=== PATIENT | female | born 1950 | race Caucasian/White ===

== ENCOUNTER → 2020-05-18 09:40 | Outpatient (BNVA) | payer OTHER, SELFPAY | PROVIDERS: PCP Internal Medicine; Visit Provider Hospitalist | DX: Z76.89 Persons encountering health services in other specified circumstances (principal) ==

== ENCOUNTER → 2021-05-20 10:14 | Outpatient (BNVA) | payer OTHER, SELFPAY | PROVIDERS: PCP Internal Medicine; Visit Provider Hospitalist ==

== ENCOUNTER 2021-07-29 13:38 | Outpatient (REF) | payer OTHER, SELFPAY ==
--- NOTE | 2021-07-29 17:23 | PFT_ITS ---
Forced vital capacity FEV1, ROS46-30, and MVV are all somewhat super normal. Postbronchodilator therapy, there is no significant change. Total lung capacity and residual volume are normal. Diffusion capacity normal. CONCLUSION: Normal pulmonary function test. No evidence of obstructive or restrictive pulmonary disorder. Deanne Nguyen MD MSB/MODL / [id number]
== END 2021-07-29 13:39 | disposition home or self-care (01) ==
LOC: HO.RESP 13:38
PROVIDERS: PCP Internal Medicine; Visit Provider Hospitalist
DX: R06.00 Dyspnea, unspecified (principal)
CPT/HCPCS: 94060; 94727; 94729

== ENCOUNTER → 2021-10-31 12:56 | Outpatient (BNVA) | payer OTHER, SELFPAY | PROVIDERS: PCP Internal Medicine; Visit Provider Hospitalist | DX: Z13.89 Encounter for screening for other disorder (principal) ==

== ENCOUNTER 2022-04-12 09:25 | Outpatient (REF) | payer MEDICARE, SELFPAY ==
--- NOTE | ~2022-04-12 | CT_ITS ---
EXAMINATION: CT CHEST WITHOUT CONTRAST CLINICAL INFORMATION: Pleural plaque without asbestos COMPARISON: Previous chest x-ray July 2009 TECHNIQUE: Multidetector volumetric CT imaging of the chest was done. Axial MIP volume rendering provided. Sagittal and coronal reformatted images were obtained. This CT examination was performed using dose optimization techniques as appropriate, variously including the following: *Automated exposure control *Adjustment of mA and/or kV according to patient size (this includes techniques or standardized protocols for targeted exams where dose is matched to indication/reason for exam; i.e. extremities or head) *Use of iterative reconstruction technique DLP: 181 mGy-cm FINDINGS: LUNGS: There is a 3 mm calcified peripheral left upper lobe nodule axial image 166 series 7. There are increased peripheral reticular markings seen in the anterior left upper lobe. This may be related to chest wall radiation. The lungs are otherwise clear. There is a small subcentimeter cyst in the right middle lobe axial image 306 series 7. MEDIASTINUM: The mediastinum is normal. CORONARY ARTERY CALCIFICATION: Mild coronary artery calcification. Normal heart size. No pericardial effusion. PLEURA: There is no pleural effusion. No pleural mass or thickening. AXILLA: There are no enlarged axillary lymph nodes. There is are surgical clips seen in the deep left breast adjacent to the chest wall. There is a a postoperative fluid collection adjacent to the surgical clips measuring 1.7 x 4 x 2 cm in dimension for example axial image 27 series 3 and sagittal image 12. UPPER ABDOMEN: There is diverticulosis of the colon. OSSEOUS STRUCTURES: There are degenerative changes of the spine. There are bilateral shoulder replacements. CT/CT chest wo IV con IMPRESSION: No pleural plaque seen. Small calcified left upper lobe pulmonary nodule. Increased peripheral or subpleural reticular markings in the anterior left upper lobe likely related to chest wall radiation. Postsurgical changes to the left breast. Fleischner guidelines were followed.
== END 2022-04-12 09:26 | disposition home or self-care (01) ==
LOC: HO.CT 09:25
PROVIDERS: PCP Internal Medicine; Visit Provider Hospitalist
DX: J18.9 Pneumonia, unspecified organism (principal); R59.1 Generalized enlarged lymph nodes; J92.9 Pleural plaque without asbestos
CPT/HCPCS: 71250

== ENCOUNTER → 2022-05-09 09:20 | Outpatient (BNVA) | payer MEDICARE, SELFPAY | PROVIDERS: PCP Internal Medicine; Visit Provider Hospitalist | DX: G47.00 Insomnia, unspecified (principal); R06.00 Dyspnea, unspecified; J92.9 Pleural plaque without asbestos; R91.1 Solitary pulmonary nodule; J98.11 Atelectasis | CPT/HCPCS: 99212 ==

== ENCOUNTER → 2022-11-14 10:14 | Outpatient (BNVA) | payer MEDICARE, SELFPAY | PROVIDERS: PCP Internal Medicine; Visit Provider Hospitalist | DX: G47.00 Insomnia, unspecified (principal); R06.00 Dyspnea, unspecified; J92.9 Pleural plaque without asbestos; R91.1 Solitary pulmonary nodule; J98.11 Atelectasis; M48.00 Spinal stenosis, site unspecified | CPT/HCPCS: 99212 ==

== ENCOUNTER 2023-05-18 09:28 | Outpatient (REF) | payer MEDICARE, SELFPAY ==
--- NOTE | ~2023-05-18 | CT_ITS ---
EXAMINATION: CT CHEST WITHOUT CONTRAST CLINICAL INFORMATION: 73-year-old female with solitary pulmonary nodule COMPARISON: 04/12/2022 TECHNIQUE: Multidetector volumetric CT imaging of the chest was done. Axial MIP volume rendering provided. Sagittal and coronal reformatted images were obtained. This CT examination was performed using dose optimization techniques as appropriate, variously including the following: *Automated exposure control *Adjustment of mA and/or kV according to patient size (this includes techniques or standardized protocols for targeted exams where dose is matched to indication/reason for exam; i.e. extremities or head) *Use of iterative reconstruction technique DLP: 157 mGy-cm FINDINGS: MANAGER UNDERWRITING: Unremarkable LUNGS: There is stable calcified left upper lobe granuloma seen on image 129 series 5, measured 0.3 cm. There is mild subpleural reticulation seen in the left upper chest most likely related to postradiation changes. There are no new lung nodules. MEDIASTINUM: The mediastinum is normal. CORONARY ARTERY CALCIFICATION: Mild coronary artery calcifications present. PLEURA: There is no pleural effusion. No pleural mass or thickening. AXILLA: No lymphadenopathy. There are stable postsurgical changes in the deep portion of left breast with postsurgical seroma. UPPER ABDOMEN: Unremarkable. OSSEOUS STRUCTURES: No lytic or blastic lesions identified. CT/CT chest wo IV con IMPRESSION: No interval change. Stable left upper lobe calcified granuloma and postradiation changes in the left upper chest. Stable postsurgical changes in the left breast. Fleischner guidelines were followed.
== END 2023-05-18 09:29 | disposition home or self-care (01) ==
LOC: HO.CT 09:28
PROVIDERS: PCP Internal Medicine; Visit Provider Hospitalist
DX: R91.1 Solitary pulmonary nodule (principal)
CPT/HCPCS: 71250

== ENCOUNTER 2023-05-25 14:24 | Outpatient (AMB) | payer MEDICARE, SELFPAY ==
--- NOTE | 2023-05-25 14:31 | MHC.OFFVIS ---
Intake Vital Signs 05/25/23 14:35 Height 5 ft 4 in Weight 178 lb BMI 30.6 Pulse 87 Pulse Source Pulse Oximeter Pulse Oximetry (%) 96 Oxygen Delivery Method Room Air Intake Visit Reasons: Asthma/CT Chest Follow Up Marketing Operations Coordinator Required: No Allergies No Known Allergies Allergy (Verified 05/25/23 14:36) HPI HPI Comments History of Present Illness Details The patient is a 73-year-old woman with a known history of obstructive sleep apnea current being treated with oral appliance. The patient has been sleeping well with this use Ambien. Initially she tried weaning off the Ambien resulting in significant issues with insomnia. She was also tried on Belsomra resulting in worsening fragmented sleep. So therefore, she went back on Ambien. She seems to be tolerating it well. She denies any retrograde amnesia. I did explain to her the importance of taking breaks from the medication to take a medication holiday at times. In the meantime she continues to use her oral appliance with very good effect. Her Greenwood score is down to 5/24. During the last visit, the patient is here for sick visit. She was in her usual state health until right after had seen a she started developing worsening respiratory symptoms. She is having more coughing and was noted to be audibly wheezing. She was seen by her nurse practitioner and was given a course of prednisone and also gave her short-acting beta agonist for the wheezing to treat what appeared to be a viral syndrome. Her symptoms did improve therefore the patient went back to be evaluated. This time she was given doxycycline and other brief course of prednisone. She was also given a long-acting beta agonist with inhaled cortical steroid. She was taking all his medicines and also got a nebulizer with albuterol therapy. The point she was taking a lot of medicines she felt uncomfortable. Therefore she started tapering quickly the prednisone and then since she felt better she also stop inhalers and then stopped all her other medications. Now her symptoms appeared to be coming back. She is having increasing cough nonproductive cough. All ascending she developed a temperature up to 102 with a digital thermometer that was yesterday. She hasn't had any fever since then. 05/18/2020. The patient is here for pulmonary follow-up visit. Patient has recovered well from her previous respiratory illness. She was wondering if she could have had COVID-19 infection then. However, nobody else in the family became sick at the time. She would like to hold off on checking her antibiotics at this time. She is not using any inhalers in her respiratory status is back to baseline. It is likely she had a component of reactive airway disease from viral syndrome. Her sleep appears to be stable on the current sleep aid. she does sleep about 4 hours a night with the Ambien. She wishes she could sleep a little longer. 05/20/2021 the patient is here for a pulmonary follow-up visit. Patient has had a very eventful year. She did have to have shoulder replacement surgery x2. She still recovering from her left shoulder replacement. Did not heels quickly or as well. In addition to that the patient started having fevers of unknown origin. She was admitted briefly to [facility] where she was evaluated on to have a tick-borne infection and treated appropriately. 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 She does complaint of some dyspnea on exertion now that she has recovered. She still gets short of breath going up couple flights of stairs. She has been having this issue even prior to getting sick with the tick-borne illness. I did personally review the CT scan in a did try to reassure her that it appears that the changes to some degree of mainly from the radiation that she received for her breast cancer many years ago resulting in some thickening of her pleura. However, in view of the new findings of the pleural plaques and some lymphadenopathy is not on reasonable for her to undergo a repeat CT scan in a year's time. If the patient develops any worsening symptoms prior to that we can always consider following up with sooner. I am going to have the patient undergo pulmonary function studies sometime in early next year and we can review them afterwards in order to assess her lung capacity at the time. She is planning a trip to go skiing in August and I would like to address the question prior to her trip. 10/31/2021 the patient is here for a pulmonary follow-up visit. Overall she is doing well. She was able to On her as she tripped in August. Respiratory status stable at that altitude. She did take it easy specially because her relatively recent shoulder surgery. She still has some shoulder discomfort specially the over left 1 which she does have some radiation discomfort to the chest area specially when lifting up the arm. She is wondering if that could be due to some radiation injury that may have been the result of her radiation during her breast cancer therapy. In addition to that she is concerned about the findings on the CT scan demostrating the pleural plaques along with the pneumonitis and the lymphadenopathy. her last CT scan was on April of 2021. Will plan to repeat the CT scan in April 2022 to make sure that those changes have not progressed. If there are any worsening evidence of pneumonitis then further diagnostic interventions will be warranted. In the meantime the patient has had a difficult time sleeping. She still using Ambien for sleep with partial improvement of her symptoms. She does have a smart watch that measures her oxygen while she is sleeping and she has noted that is dropped down to 88%. I did reassure her that dropped down to 88% is not dangers unless is more than 5 minutes. May be due to some degree of sleep apnea. The patient has a hard time sleeping on her side because of her shoulder surgery. I did recommend that she sleep elevated with a wedge or positional bed to minimize obstructive apnea. If she continues to be symptomatic then we will discuss undergoing a repeat sleep study some point to further address that. 05/09/2022 the patient is here for a pulmonary follow-up visit. She has been concerned about her CT scan findings. She has call before we did send her a copy of the report and we will talk to her today about it. She denies any worsening shortness of breath or cough. She is able to do all her activities of daily living. She is not using any inhalers. She does use nasal therapy for nasal congestion. Lately she has been having some allergy symptoms and some postnasal drip. We talked about rinsing with the Neti bottle for benefit without potential adverse effects. She did try antihistamines but she did complaint of dry eyes. We did review her CT scan of the chest demonstrating minimal atelectasis the bases along with some reticular changes likely some scarring that was a minimal amount left more than right lung in a man been related to an old infection. No significant lymphadenopathy noted. This has improved. She does have some radiation changes at the pleura and the lung primarily from the left lung the receive radiation for breast cancer that area appears to be stable. She does have a pulmonary nodule in the right lower lobe that appears to be subsolid in nature measuring 3-4 mm in size and will require additional follow-up. She has a calcified nodule in the left upper lobe as well. In the room based on the findings explained to the patient that she will need another CT scan in a year's time. 11/14/2022 the the patient is here for pulmonary follow-up visit. The patient is now having issues with her back. She is having significant spinal stenosis severe pain. At least from a respiratory status patient is doing well. Her sleep is still affected by her other elements but she is doing better with the Ambien. She is tolerating it well. A prescription was sent to the pharmacy. We did talk about her last CT scan of the chest demonstrating the pulmonary nodule which is small. In addition to that she has some interstitial changes likely from radiation therapy. She has a scheduled CT scan for March 2023. She opted to having it at [facility] breast surgeon. 05/25/2023 the patient is here for a pulmonary follow-up visit the patient overall has been doing better. She still has issues with insomnia. Dyspnea appears to be better at this time still has some dyspnea on exertion mild in severity. She recent CT scan of the chest which I personally reviewed with her. Also compared to her previous CT scan. She does have stable pulmonary nodules. a ground-glass nodular density 1 of the nodules appears to be subsolid in nature in the right hemithorax. Therefore, this ground-glass nodular density will require a longer evaluation. Therefore will go ahead and repeat the CT scan in a year's time. Does not nodules that are solid on stable and reassuring. [facility] Medical History (Updated 05/25/23 @ 14:40 by David Brown MD) Spinal stenosis Atelectasis Pulmonary nodule Lymphadenopathy Pneumonitis Pleural plaque Dyspnea Insomnia Social History (Updated 10/31/21 @ 13:07 by EFRAIN Brannon) Patient Tobacco Use Status: Never used Tobacco Review of Systems Const Reports daytime sleepiness, Reports difficulty sleeping and Denies night sweats ENT Denies change in voice, Denies lip swelling, Denies mouth pain, Reports nasal congestion, Reports nasal discharge and Denies tongue swelling Card Denies chest pain Resp Reports cough GI Denies abdominal pain Musc Reports as per HPI, Reports back pain, Reports myalgias, Reports arthralgias, Reports limited range of motion and Reports stiffness Neuro Denies Neuro-related abnormal movements Psych Denies no additional complaints Kunal/Lymph Denies easy bleeding and Denies lymphadenopathy Aller/Immun Denies lip swelling and Denies tongue swelling Physical Exam Vital Signs: Last Vital Signs Pulse 87 05/25/23 14:35 Pulse Ox 96 05/25/23 14:35 Oxygen Delivery Method Room Air 05/25/23 14:35 BMI result Body Mass Index 30.6 Const General: alert HEENT General nose exam: Abnormal external nose present and Nasal discharge present Eyes Pupils: Equal, round and reactive pupils present Neck Neck: Yes normal visual inspection, Yes full ROM and Yes no lymphadenopathy Chest Chest palpation & inspection: normal inspection of the chest Resp Auscultation: diminished lung sounds Cardio Rate: regular rate Rhythm: regular rhythm Heart sounds: S1 normal heart sound present and S2 normal heart sound present GI Palpation (GI): Soft to palpation and nontender Auscultation: normal bowel sounds General: Yes no CVA tenderness Back/Spine/Pelvis Back: no CVA tenderness Skin General skin exam: rashes and/or lesions noted Neuro Cranial nerves: Yes Equal, round and reactive pupils present Assessment & Plan Assessment & Plan (1) Insomnia: Code(s): G47.00 - Insomnia, unspecified Qualifiers: Insomnia type: primary Qualified Code(s): F51.01 - Primary insomnia Plan: continue Ambien 10mg daily Add Trozadone 50mg qhs (2) Dyspnea: Code(s): R06.00 - Dyspnea, unspecified Qualifiers: Dyspnea type: dyspnea on exertion Qualified Code(s): R06.09 - Other forms of dyspnea (3) Pleural plaque: Comment: Primarily related to area of radiation changes of the left more so we lung/pleura from her history breast cancer Code(s): J92.9 - Pleural plaque without asbestos (4) Pulmonary nodule: Comment: Right lower lobe subsolid nodule 3 - 4 mm in size. Also calcified nodule in the left upper lobe Code(s): R91.1 - Solitary pulmonary nodule (5) Atelectasis: Comment: dependent on supine position with minimal reticular changes likely from previous infection Code(s): J98.11 - Atelectasis Plan Continue sleep aid therapy positional sleep management for obstructive apneas. Will need a repeat CT scan of the chest April 2024 Follow-up 1 year Orders: Orders CT chest wo IV con 364 Days R91.1 - Solitary pulmonary nodule Coding Level of Care Code Est Pt Level 4 (33796) Diagnoses Primary insomnia F51.01 Insomnia type: primary Dyspnea on exertion R06.09 Dyspnea type: dyspnea on exertion Pleural plaque J92.9 Pulmonary nodule R91.1 Atelectasis J98.11 Time Spent (min) 17
[2023-05-25 14:35] VITALS: PULSE 87; O2SAT 96; BMI 30.6
== END 2023-05-25 14:53 | disposition home or self-care (01) ==
PROVIDERS: PCP Internal Medicine; Visit Provider Hospitalist
DX: F51.01 Primary insomnia (principal); R06.09 Other forms of dyspnea; J92.9 Pleural plaque without asbestos; R91.1 Solitary pulmonary nodule; J98.11 Atelectasis
CPT/HCPCS: 99214

== ENCOUNTER → 2023-05-25 14:24 | Outpatient (BNVA) | payer MEDICARE, SELFPAY | PROVIDERS: PCP Internal Medicine; Visit Provider Hospitalist | DX: R06.09 Other forms of dyspnea (principal); R91.1 Solitary pulmonary nodule; J92.9 Pleural plaque without asbestos; J98.11 Atelectasis; F51.01 Primary insomnia | CPT/HCPCS: 99212 ==

== ENCOUNTER 2024-10-07 10:33 | Outpatient (AMB) | payer MEDICARE, SELFPAY ==
--- NOTE | 2024-10-07 10:38 | MHC.OFFVIS ---
Vital Signs 10/07/24 10:39 Height 5 ft 4 in Weight 178 lb 9.191 oz BMI 30.6 BP 160/72 H Blood Pressure Location Rt brachial Position Sitting Pulse 57 Pulse Source Pulse Oximeter Pulse Oximetry (%) 100 Oxygen Delivery Method Room Air Intake Visit Reasons: Atelectasis Allergies No Known Allergies Allergy (Verified 10/07/24 10:42) HPI Comments Details: The patient is a 74-year-old woman with a known history of obstructive sleep apnea current being treated with oral appliance. The patient has been sleeping well with this use Ambien. Initially she tried weaning off the Ambien resulting in significant issues with insomnia. She was also tried on Belsomra resulting in worsening fragmented sleep. So therefore, she went back on Ambien. She seems to be tolerating it well. She denies any retrograde amnesia. I did explain to her the importance of taking breaks from the medication to take a medication holiday at times. In the meantime she continues to use her oral appliance with very good effect. Her Himrod score is down to 5/24. During the last visit, the patient is here for sick visit. She was in her usual state health until right after had seen a she started developing worsening respiratory symptoms. She is having more coughing and was noted to be audibly wheezing. She was seen by her nurse practitioner and was given a course of prednisone and also gave her short-acting beta agonist for the wheezing to treat what appeared to be a viral syndrome. Her symptoms did improve therefore the patient went back to be evaluated. This time she was given doxycycline and other brief course of prednisone. She was also given a long-acting beta agonist with inhaled cortical steroid. She was taking all his medicines and also got a nebulizer with albuterol therapy. The point she was taking a lot of medicines she felt uncomfortable. Therefore she started tapering quickly the prednisone and then since she felt better she also stop inhalers and then stopped all her other medications. Now her symptoms appeared to be coming back. She is having increasing cough nonproductive cough. All ascending she developed a temperature up to 102 with a digital thermometer that was yesterday. She hasn't had any fever since then. 05/18/2020. The patient is here for pulmonary follow-up visit. Patient has recovered well from her previous respiratory illness. She was wondering if she could have had COVID-19 infection then. However, nobody else in the family became sick at the time. She would like to hold off on checking her antibiotics at this time. She is not using any inhalers in her respiratory status is back to baseline. It is likely she had a component of reactive airway disease from viral syndrome. Her sleep appears to be stable on the current sleep aid. she does sleep about 4 hours a night with the Ambien. She wishes she could sleep a little longer. 05/20/2021 the patient is here for a pulmonary follow-up visit. Patient has had a very eventful year. She did have to have shoulder replacement surgery x2. She still recovering from her left shoulder replacement. Did not heels quickly or as well. In addition to that the patient started having fevers of unknown origin. She was admitted briefly to [facility] where she was evaluated on to have a tick-borne infection and treated appropriately. 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 She does complaint of some dyspnea on exertion now that she has recovered. She still gets short of breath going up couple flights of stairs. She has been having this issue even prior to getting sick with the tick-borne illness. I did personally review the CT scan in a did try to reassure her that it appears that the changes to some degree of mainly from the radiation that she received for her breast cancer many years ago resulting in some thickening of her pleura. However, in view of the new findings of the pleural plaques and some lymphadenopathy is not on reasonable for her to undergo a repeat CT scan in a year's time. If the patient develops any worsening symptoms prior to that we can always consider following up with sooner. I am going to have the patient undergo pulmonary function studies sometime in early next year and we can review them afterwards in order to assess her lung capacity at the time. She is planning a trip to go skiing in August and I would like to address the question prior to her trip. 10/31/2021 the patient is here for a pulmonary follow-up visit. Overall she is doing well. She was able to On her as she tripped in August. Respiratory status stable at that altitude. She did take it easy specially because her relatively recent shoulder surgery. She still has some shoulder discomfort specially the over left 1 which she does have some radiation discomfort to the chest area specially when lifting up the arm. She is wondering if that could be due to some radiation injury that may have been the result of her radiation during her breast cancer therapy. In addition to that she is concerned about the findings on the CT scan demostrating the pleural plaques along with the pneumonitis and the lymphadenopathy. her last CT scan was on April of 2021. Will plan to repeat the CT scan in April 2022 to make sure that those changes have not progressed. If there are any worsening evidence of pneumonitis then further diagnostic interventions will be warranted. In the meantime the patient has had a difficult time sleeping. She still using Ambien for sleep with partial improvement of her symptoms. She does have a smart watch that measures her oxygen while she is sleeping and she has noted that is dropped down to 88%. I did reassure her that dropped down to 88% is not dangers unless is more than 5 minutes. May be due to some degree of sleep apnea. The patient has a hard time sleeping on her side because of her shoulder surgery. I did recommend that she sleep elevated with a wedge or positional bed to minimize obstructive apnea. If she continues to be symptomatic then we will discuss undergoing a repeat sleep study some point to further address that. 05/09/2022 the patient is here for a pulmonary follow-up visit. She has been concerned about her CT scan findings. She has call before we did send her a copy of the report and we will talk to her today about it. She denies any worsening shortness of breath or cough. She is able to do all her activities of daily living. She is not using any inhalers. She does use nasal therapy for nasal congestion. Lately she has been having some allergy symptoms and some postnasal drip. We talked about rinsing with the Neti bottle for benefit without potential adverse effects. She did try antihistamines but she did complaint of dry eyes. We did review her CT scan of the chest demonstrating minimal atelectasis the bases along with some reticular changes likely some scarring that was a minimal amount left more than right lung in a man been related to an old infection. No significant lymphadenopathy noted. This has improved. She does have some radiation changes at the pleura and the lung primarily from the left lung the receive radiation for breast cancer that area appears to be stable. She does have a pulmonary nodule in the right lower lobe that appears to be subsolid in nature measuring 3-4 mm in size and will require additional follow-up. She has a calcified nodule in the left upper lobe as well. In the room based on the findings explained to the patient that she will need another CT scan in a year's time. 11/14/2022 the the patient is here for pulmonary follow-up visit. The patient is now having issues with her back. She is having significant spinal stenosis severe pain. At least from a respiratory status patient is doing well. Her sleep is still affected by her other elements but she is doing better with the Ambien. She is tolerating it well. A prescription was sent to the pharmacy. We did talk about her last CT scan of the chest demonstrating the pulmonary nodule which is small. In addition to that she has some interstitial changes likely from radiation therapy. She has a scheduled CT scan for March 2023. She opted to having it at [facility] breast surgeon. 05/25/2023 the patient is here for a pulmonary follow-up visit the patient overall has been doing better. She still has issues with insomnia. Dyspnea appears to be better at this time still has some dyspnea on exertion mild in severity. She recent CT scan of the chest which I personally reviewed with her. Also compared to her previous CT scan. She does have stable pulmonary nodules. a ground-glass nodular density 1 of the nodules appears to be subsolid in nature in the right hemithorax. Therefore, this ground-glass nodular density will require a longer evaluation. Therefore will go ahead and repeat the CT scan in a year's time. Does not nodules that are solid on stable and reassuring. 10/07/2024 the patient is here for pulmonary follow-up visit. Overall the patient has been doing fairly well. She has been helping her who has been dealing with some sickness and also her son who was diagnosed with renal cell carcinoma and did have to undergo a nephrectomy but he is also doing better which is reassuring. She also said issues with her scan some skin cancer that she is dealing with as well. From a respiratory status she doing well though she is using her oral appliance to sleep with in that does take care the snoring and she does wake up rested. Her Himrod score is below 8 which is reassuring. In addition to that the patient has been very active [place] and traveling without any worsening shortness of breath. She has been using the Ambien for sleep. The Ambien therapy has been affecting beneficial for her. We did talk about taking holidays from it to minimize on adverse effects. It also needs to be monitoring closely for any retrograde amnesia. She has tried trazodone before but he cause daytime drowsiness in therefore will hold off on that 1. The patient does have a history of pulmonary nodules although there calcified and also has some radiation changes. We had up requested a CT scan before but was denied. Therefore will request a chest x-ray. She rather wait till the next visit for the x-ray which is okay. [facility] Medical History (Updated 05/25/23 @ 14:40 by David Brown MD) Spinal stenosis Atelectasis Pulmonary nodule Lymphadenopathy Pneumonitis Pleural plaque Dyspnea Insomnia Social History Patient Tobacco Use Status: Never used Tobacco Review of Systems Const Reports daytime sleepiness, Reports difficulty sleeping and Denies night sweats ENT Denies change in voice, Denies lip swelling, Denies mouth pain, Reports nasal congestion, Reports nasal discharge and Denies tongue swelling Card Denies chest pain Resp Reports cough GI Denies abdominal pain Musc Reports as per HPI, Reports back pain, Reports myalgias, Reports arthralgias, Reports limited range of motion and Reports stiffness Neuro Denies Neuro-related abnormal movements Psych Denies no additional complaints Kunal/Lymph Denies easy bleeding and Denies lymphadenopathy Aller/Immun Denies lip swelling and Denies tongue swelling Physical Exam Vital Signs: Last Vital Signs Pulse 57 10/07/24 10:39 BP 160/72 H 10/07/24 10:39 Pulse Ox 100 10/07/24 10:39 Oxygen Delivery Method Room Air 10/07/24 10:39 BMI result Body Mass Index 30.6 Const General: alert HEENT General nose exam: Abnormal external nose present and Nasal discharge present Eyes Pupils: Equal, round and reactive pupils present Neck Neck: Yes normal visual inspection, Yes full ROM and Yes no lymphadenopathy Chest Chest palpation & inspection: normal inspection of the chest Resp Auscultation: clear to auscultation bilaterally Cardio Rate: regular rate Rhythm: regular rhythm Heart sounds: S1 normal heart sound present and S2 normal heart sound present GI Palpation (GI): Soft to palpation and nontender Auscultation: normal bowel sounds General: Yes no CVA tenderness Back/Spine/Pelvis Back: no CVA tenderness Skin General skin exam: rashes and/or lesions noted Neuro Cranial nerves: Yes Equal, round and reactive pupils present Assessment & Plan Assessment & Plan (1) Insomnia: Code(s): G47.00 - Insomnia, unspecified Category: Medical Qualifiers: Insomnia type: primary Qualified Code(s): F51.01 - Primary insomnia Plan: continue Ambien 10mg daily Add Trozadone 50mg qhs (2) Dyspnea: Code(s): R06.00 - Dyspnea, unspecified Category: Medical Qualifiers: Dyspnea type: dyspnea on exertion Qualified Code(s): R06.09 - Other forms of dyspnea (3) Pleural plaque: Comment: Primarily related to area of radiation changes of the left more so we lung/pleura from her history breast cancer Code(s): J92.9 - Pleural plaque without asbestos Category: Medical (4) Pulmonary nodule: Comment: Right lower lobe subsolid nodule 3 - 4 mm in size. Also calcified nodule in the left upper lobe Code(s): R91.1 - Solitary pulmonary nodule Category: Medical (5) Atelectasis: Comment: dependent on supine position with minimal reticular changes likely from previous infection Code(s): J98.11 - Atelectasis Category: Medical Plan Continue sleep aid therapy: Ambien Oral mandibular device positional sleep management for obstructive apneas. CXR next year Follow-up 1 year Medications: Refilled zolpidem 10 mg PO BEDTIME 30 tabs 3RF 30 days Coding Level of Care Code Est Pt Level 4 (71582) Complex EM visit Add On G2211 Diagnoses Primary insomnia F51.01 Insomnia type: primary Dyspnea on exertion R06.09 Dyspnea type: dyspnea on exertion Pleural plaque J92.9 Pulmonary nodule R91.1 Atelectasis J98.11 Time Spent (min) 17
[2024-10-07 10:39] VITALS: BP 160/72; PULSE 57; O2SAT 100; BMI 30.6
--- OUTSIDE RECORDS SUMMARY | 2024-10-07 12:23 | XMS_ITS | Clinical Summary ---
Author Organization [facility] Facility Address [address] [address] Care Team Providers Care Supervisor Feed House Name Role Phone Harvey Elizabeth MD Primary Care Provider Allergies No known active allergies Medications Biotin 5 MG tablet dispersible Take 5,000 mcg by mouth 0 Active fluticasone (FLONASE) 50 MCG/ACT nasal spray Administer into affected nostril(s) Active Ibuprofen (ADVIL PO) Take by mouth 1 Active losartan (COZAAR) 100 MG tablet Take 100 mg by mouth 1 Active Probiotic Product (Align) capsule Take 4 mg by mouth 0 Active ROSUVASTATIN CALCIUM PO Take by mouth 1 Active labetalol (NORMODYNE) 100 MG tablet Take 100 mg by mouth in the morning and 100 mg in the evening. Active zolpidem CR (AMBIEN CR) 6.25 MG CR tablet Take 6.25 mg by mouth at night if needed for sleep Do not crush, chew, or split. Active traZODone (DESYREL) 50 MG tablet Take 50 mg by mouth every night Active Calcium-Magnesiu m-Vitamin D (CALCIUM 1200+D3 PO) Take by mouth Active co-enzyme Q-10 30 MG capsule Take 30 mg by mouth 1 (one) time each day Active Active Problems Problem Noted Date Diagnosed Date Obese class I 09/02/2021 Benign essential hypertension 07/07/2019 Insomnia 07/07/2019 Patient encounter status 07/07/2019 Overview (09/02/2021): 2009 2013; Sleep apnea 07/07/2019 Vitamin D deficiency 07/07/2019 Immunizations Name Administration Dates Next Due Hepatitis B 07/23/1989 Influenza Split High Dose Pr eservative Free IM 08/22/2017 Influenza, Quadrivalent, Pre servative Free 07/07/2019,04/21/2014,07/29/2013,07/31,07/23/2009 Influenza, Unspecified 05/08/2018 Pfizer SARS-COV-2 09/13/2020,08/23/2020 Pneumococcal Polysaccharide 07/23/2009 Tdap 07/22/2012,07/23/2005 Family History Medical History Relation Comments Diabetes Father Cancer Mother Relation Status Comments Father Mother Social History Tobacco Use Types Packs/Day Years Used Date Smoking Tobacco: Never Smokeless Tobacco: Never Alcohol Use Standard Drinks/Week Comments Yes 3 (1 standard drink = 0.6 oz pur e alcohol) Comments Unknown Sex and Gender Information Value Date Recorded Sex Assigned at Not on file Legal Sex Female 3:47 PM EST Gender Identity Not on file Sexual Orientation Not on file Last Filed Vital Signs Vital Sign Reading Time Taken Comments Blood Pressure 122/70 09/07/2021 7:39 AM EST Pulse 70 09/07/2021 7:39 AM EST Temperature - - Respiratory Rate - - Oxygen Saturation 98% 09/07/2021 7:39 AM EST Inhaled Oxygen Concentration - - Weight 83 kg (183 lb) 09/07/2021 7:39 AM EST Height 160 cm (5' 3 ) 09/07/2021 7:39 AM EST Body Mass Index 32.42 09/07/2021 7:39 AM EST Plan of Treatment Health Maintenance Due Date Last Done Comments Breast Cancer Screening 1950 Colorectal Cancer Screening: Annual FOBT 1998 Colorectal Cancer Screening: Colonoscopy 1998 Colorectal Cancer Screening: Sigmoidoscopy 1998 Pneumococcal Vaccine: 65+ Years (2 of 2 - PCV) 2014 07/23/2009 Influenza Vaccine (#1) 2024 9, 05/08/2018, 08/22/2017, Additional history exists Hepatitis B Vaccine Aged Out 07/23/1989 No longe r eligible based on patient's age to complete this topic Insurance CIG [employer] Care Teams Supervisor Feed House Relationship Specialty Start Date End Date Harvey Elizabeth MD [address] [place] [address] PCP - General Internal Medicine 08/29/21
--- OUTSIDE RECORDS SUMMARY | 2024-10-07 12:23 | XMS_ITS | Clinical Summary ---
Author Organization [employer] Address [address] [place] [address] Care Team Providers Care Aviation Technical Systems Specialist Name Role Phone Harvey Elizabeth Primary Care Provider [phone] Allergies Active Allergy Reactions Criticality Noted Date Comments No Known Allergies 07/07/2019 Medications Bifidobacterium infantis (ALIGN) 4 mg capsule Take by mouth. Activ e losartan (COZAAR) 25 mg tablet Take by mouth 1 (one) time each day at the same time. Active zolpidem (AMBIEN) 10 mg tablet Take by mouth. Activ e calcium carbonate (CALCIUM 600 ORAL) Take by mouth 1 (one) time each day at the same time. Active COQ10, LIPOSOMAL UBIQUINOL, ORAL Take by mouth. Active EVENING PRIMROSE OIL ORAL Take by mouth. Activ e fluticasone propionate (FLONASE ALLERGY RELIEF) 50 mcg/actuation nasal spray Administer into affected nostril(s) 1 (one) time each day at the same time. Active cholecalciferol , vitamin D3, (VITAMIN D3 ORAL) Take by mouth. Activ e albuterol HFA (PROAIR HFA) 90 mcg/actuation inhalerIndicati ons:Bacterial URI Inhale 2 puffs every 4 (four) hours if needed for wheezing or shortness of breath. 8.5 g 9 Active fluticasone propion-salmete rol (ADVAIR DISKUS) 250-50 mcg/dose diskus inhalerIndicati ons:Bronchitis Inhale 1 puff 2 (two) times a day. Rinse mouth with water after use to reduce aftertaste and incidence of candidiasis. Do not swallow. 3 each 3 12/20/201 9 Active Active Problems Problem Noted Date Diagnosed Date Benign essential hypertension 07/07/2019 Insomnia 07/07/2019 Sleep apnea 07/07/2019 Annual physical exam 07/07/2019 Overview (07/07/2019): 2009 2013; Vitamin D deficiency 07/07/2019 Immunizations Name Administration Dates Next Due COVID-19 Pfizer SARS-CoV2 mR NA PF 30mcg/0.3mL Vaccine (Purple) 09/13/2020,08/23/2020 Hepatitis B 07/23/1989 Influenza Split High Dose Pr eservative Free IM 08/22/2017 Influenza, Unspecified 05/08/2018 Influenza, trivalent (IIV3), split virus (single-dose) PF 07/07/2019,04/21/2014,07/29/2013,07/31,07/23/2009 Pneumococcal Polysaccharide 23-Valent 07/23/2009 Tdap 07/22/2012,07/23/2005 Family History Medical History Relation Comments Diabetes Father Cancer Mother Relation Status Comments Father Mother Social History Tobacco Use Types Packs/Day Years Used Date Smoking Tobacco: Never Smokeless Tobacco: Never Alcohol Use Standard Drinks/Week Comments Yes 0 (1 standard drink = 0.6 oz pur e alcohol) AUDIT-C Answer Date Recorded Frequency of Alcohol Consumption 2-3 times a wee k 07/07/2019 Average Number of Drinks Not on file 019 Frequency of Binge Drinking Not on file 06/22 Exercise Vital Sign Answer Date Recorde d Days of Exercise per Week 3 days 2018 Minutes of Exercise per Session 40 min 07/07/2019 Comments Unknown Sex and Gender Information Value Date Recorded Sex Assigned at Not on file Legal Sex Female 12:29 AM [facility] Gender Identity Not on file Sexual Orientation Not on file Last Filed Vital Signs Vital Sign Reading Time Taken Comments Blood Pressure 150/78 08/13/2019 2:30 PM EST Pulse 96 08/13/2019 2:30 PM EST Temperature 36.8 ??C (98.3 ??F) 08/13/2019 2:30 PM ES T Respiratory Rate 16 08/13/2019 2:30 PM EST Oxygen Saturation - - Inhaled Oxygen Concentration - - Weight 85.7 kg (189 lb) 08/13/2019 2:30 PM EST Height 162.6 cm (5' 4 ) 08/13/2019 2:30 PM EST Body Mass Index 32.44 08/13/2019 2:30 PM EST Plan of Treatment Health Maintenance Due Date Last Done Comments CT Colonography 1950 Cologuard 1950 FOBT/FIT 1950 Hepatitis C Screening 1950 Sigmoidoscopy 1949 PHQ-9 Depression Screen 1961 Complete Annual HRA 1967 SHERLY-7 Anxiety Screen 1967 Zoster Vaccines (1 of 2) 1999 Pneumococcal Vaccine: 50+ Ye ars (2 of 2 - PCV) 07/23/2010 07/23/2009 Annual Preventive Exam 10/24/2018 10/24/2017, 2017 DTaP,Tdap,and Td Vaccines (3 - Td or Tdap) 07/22/2022 07/22/2012, 07/23/2005 RSV Vaccine (SCDM) (1 - 1-do se 75+ series) 02/27/2024 COVID-19 Vaccine (3 - 2023-2 5 season) 2024 09/13/2020, 08/23/2020 Influenza Vaccine (#1) 2024 , 05/08/2018, 08/22/2017, Additional history exists Colonoscopy 08/03/2026 08/03/2016 Colorectal Cancer Screening 08/03/2026 Bone Density DEXA Completed 10/29/2017 Insurance [facility] Care Teams Aviation Technical Systems Specialist Relationship Specialty Start Date End Date Harvey Elizabeth [address] [address] PCP - General 07/07/19
--- OUTSIDE RECORDS SUMMARY | 2024-10-07 12:23 | XMS_ITS | Continuity of Care Document ---
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 Start Date: 02/14/21 Status: Ordered Repeat number: 1 Align 4 mg oral capsule 1 capsule = 4 mg, By Mouth, Daily, # 28 capsule, 0 Refills, Maintenance, 04/28/20 10:11:00 AM EDT, Capsule Start Date: 04/28/20 Status: Ordered Quantity: 28.0 Unit: capsule Repeat number: 1 Ambien 10 mg oral tablet 1 tablet = 10 mg, By Mouth, Daily at bedtime, PRN as needed for insomnia, 0 Refills, Maintenance, 04/28/20 10:10:00 AM EDT, Tablet Start Date: 04/28/20 Status: Ordered Repeat number: 1 biotin 5000 mcg oral tablet, disintegrating 1 tablet = 5,000 mcg, By Mouth, Daily, with meals, # 45 tablet, 0 Refills, Maintenance, 05/11/20 2:14:00 PM EDT, DIS Tablet Start Date: 05/11/20 Status: Ordered Quantity: 45.0 Unit: tablet Repeat number: 1 Calcium And Vitamin D Combination 1, By Mouth, Daily, 0 Refills, Maintenance, 04/28/20 10:11:00 AM EDT Start Date: 04/28/20 Status: Ordered Repeat number: 1 CeleBREX 200 mg oral capsule 1 capsule = 200 mg, By Mouth, Daily, 0 Refills, Maintenance, 06/18/23 2:16:00 PM EST, Partial fill upon patient request if the prescription is for a schedule II opioid drug. Start Date: 06/18/23 Status: Ordered Repeat number: 1 CoQ10 = 300 mg, By Mouth, Daily, 0 Refills, Maintenance, 04/28/20 10:10:00 AM EDT Start Date: 04/28/20 Status: Ordered Repeat number: 1 Diclofenac By Mouth, 0 Refills, Maintenance, 01/15/24 9:35:00 AM EDT, Partial fill upon patient request if the prescription is for a schedule II opioid drug. Start Date: 01/15/24 Status: Ordered Repeat number: 1 Flonase 1 sprays, Nares, Both, Daily, 0 Refills, Maintenance, 07/09/10 1:03:30 PM EST Start Date: 07/09/10 Status: Ordered Repeat number: 1 Labetalol 0 Refills, Maintenance, 11/17/21 11:13:00 AM EDT, Partial fill upon patient request if the prescription is for a schedule II opioid drug. Start Date: 11/17/21 Status: Ordered Repeat number: 1 losartan 100 mg oral tablet 1 tablet = 100 mg, By Mouth, Daily, 0 Refills, Maintenance, 12/03/20 2:18:00 PM EDT, Partial fill upon patient request if the prescription is for a schedule II opioid drug. Start Date: 12/03/20 Status: Ordered Repeat number: 1 Rosuvastatin By Mouth, Daily, 0 Refills, Maintenance, 12/03/20 2:18:00 PM EDT, Partial fill upon patient request if the prescription is for a schedule II opioid drug. Start Date: 12/03/20 Status: Ordered Repeat number: 1 traZODone 50 mg oral tablet 25 mg, 0.5, tablet, By Mouth, Daily at bedtime, # 15 tablet, Refills 0, Maintenance, 05/21/20 3:05:00 PM EDT Start Date: 05/21/20 Status: Ordered Quantity: 15.0 Unit: tablet Repeat number: 1 Tylenol Extra Strength 500 mg oral tablet 2 tablet = 1,000 mg, By Mouth, Every 8 hours, PRN Pain , Mild, 0 Refills, Maintenance, 02/21/21 10:38:00 AM EDT, Partial fill upon patient request if the prescription is for a schedule II opioid drug. Start Date: 02/21/21 Status: Ordered Repeat number: 1 Problem List Condition Confirmation Course Effective Dates Status Health St atus Informant Obese class I Confirmed Active Results Radiology Reports * Exam Date Time Procedure Performing Provider Status 10/01/24 8:51 AM MRI Ext Lower W/O Contrast Right Auth (Verified) Notes: (MRI Ext Lower W/O Contrast Right) Reason For Exam: Gluteal tendinitis, right hip;Gluteal tendinitis, right hip RESULT: MRI Ext Lower W/O Contrast [facility] VISIT NUMBER :[id number] Patient Name: Tessa Edwards Date of : 1950 Date of Exam: 10-01-2024 Referring Physician: [facility] [address] [place] [id number] Exam: MR Hip Unilat (C-) CPT 13797 - Right Room Description: [facility] 3T CLINICAL HISTORY: Gluteal tendinitis of the right hip. The patient reports moderate constant bilateral hip pain for one year. TECHNIQUE: MR of the right hip was performed without intravenous contrast. COMPARISON: None. FINDINGS: Bone: There is no evidence of osteonecrosis or fracture. Multilevel degenerative changes seen in the lower lumbar spine. The sacroiliac joints appear symmetric. There is mild bony proliferation at the pubic symphysis. Acetabular labrum: There is diffuse intermediate signal compatible with degeneration in the anterosuperior labrum. Superimposed linear fluid signal extends into the anterosuperior labrum compatible with superimposed tear. Articular cartilage: Mild chondral thinning is seen in the right hip with no discrete chondral defect. No evidence of hip joint effusion. Muscle and tendons: There is tendinopathy of gluteus medius minimus with peritendinous the right gluteus medius tendon appears intact. The iliopsoas tendon is intact. There is tendinopathy of the proximal hamstrings. IMPRESSION: 1. Tendinopathy of the right gluteus minimus with mild peritendinous edema and mild insertional tendinopathy of the right gluteus medius. 2. Tendinopathy of the right proximal hamstrings. 3. Mild degenerative change in the right hip with degenerative appearing tear of the anterosuperior labrum. Electronically Signed By: Renu Butt MD Dictated By: Not on Staff , LIZZIE HADDAD Dictated Date/Time: 10/02/24 3:18 pm Reviewed By: Not on Staff , LIZZIE HADDAD Signed By: Not on Staff , LIZZIE HADDAD Signed Date/Time: 10/02/24 3:18 pm Transcribed By: TS Transcribed Date/Time: 10/02/24 3:18 pm Social History Social History Type Response Smoking Status Never (less than 100 in lifetime) entered on: 04/28/20 Sex Sex Representation Female (finding) Patient Care team information Care Team Personnel Name: Marilyn Muse MA Position: [facility] Member Role: Lifetime Consulting Physician Name: Amilcar Lacey MD Position: [facility] Renal MD Member Role: Lifetime Consulting Physician Address: [address] [facility] [facility] [place] [address]- Telecom: Name: Harvey Elizabeth MD S Position: [facility] Physician - Primary Care Member Role: PCP Address: [address] [place] [address]- Telecom: Name: Savannah Daigle RN Position: [facility] RN Member Role: Primary Care Nurse Name: Krista Rao RN Position: [facility] RN Member Role: Primary Care Nurse Name: Ariana Mo MD Position: [facility] PROOF CARRIER MD Member Role: Lifetime PROOF CARRIER Physician Address: [address] [facility] [place] [address]- Telecom: Care Team Related Persons Name: CHEPE EDWARDS Insurance Providers Guarantor name: TESSA JERRY Health Plan Information #: 1 Payer: NA Member Number: NA Policy Number: NA Group Number: NA
== END 2024-10-07 11:03 | disposition home or self-care (01) ==
LOC: HO.HPS 10:33
PROVIDERS: PCP Internal Medicine; Visit Provider Hospitalist
DX: F51.01 Primary insomnia (principal); R06.09 Other forms of dyspnea; J92.9 Pleural plaque without asbestos; R91.1 Solitary pulmonary nodule; J98.11 Atelectasis
CPT/HCPCS: 99214; G2211

== ENCOUNTER → 2024-10-07 10:33 | Outpatient (BNVA) | payer MEDICARE, SELFPAY | PROVIDERS: PCP Internal Medicine; Visit Provider Hospitalist | DX: G47.33 Obstructive sleep apnea (adult) (pediatric) (principal); J92.9 Pleural plaque without asbestos; J98.11 Atelectasis; F51.01 Primary insomnia; R06.09 Other forms of dyspnea; R91.1 Solitary pulmonary nodule; Z79.899 Other long term (current) drug therapy | CPT/HCPCS: 99212 ==